=== PATIENT | female | born 1965 | race Caucasian/White ===

== ENCOUNTER → 2021-06-13 | Outpatient (CLI) | payer OTHER ==
--- NOTE | 2021-06-13 14:51 | KCIC ---
EXAM: DUAL ENERGY X-RAY ABSORPTIOMETRY (DEXA). HISTORY: Postmenopausal screening. FINDINGS: The lowest measured T-score is -1.0 in the left hip, based on a bone mineral density of 0.8 25 g/cm^2. Refer to the worksheets for full detail. No comparison examinations are available. IMPRESSION: 1. Low bone mass. Bone mineral density yields a T-score between -1.0 and -2.5. Fracture risk is incre ased. 2. FRAX report: Not calculated. METHODOLOGY: Dual energy x-ray absorptiometry was performed to measure bone mineral density. The foll owing analysis is based on the 2019 Official Positions of the International Society for Clinical Dens itometry: Measurements of the hips and the average of L1-L4 are preferred. When the spine and/or hip cannot be feasibly measured or interpreted, or in the setting of hyperparathyroidism, distal radial bone minera l density may be measured. The lumbar spine T-score is based on the average bone mineral density of L1-L4. In the setting of art ifact or anatomic abnormality, some lumbar levels may be excluded, and the remaining levels used for calculation. A single lumbar level is not used for diagnosis, and if only a single level is available for assessment, another anatomic site will be used to assign a diagnosis. The hip T-score is based on the bone mineral density measurement of the femoral neck or total proxima l femur of either side, whichever is lowest. Bilateral mean values are not used for diagnosis. The forearm T-score is derived from 33% of the distal radius of the nondominant forearm. Electronically signed by: Yuki Man MD (06/13/2021 2:49 PM) [id number]
--- NOTE | 2021-06-13 17:48 | KCIC ---
EXAM: MRI LEFT LOWER EXTREMITY W/O 06/13/2021 2:20 PM CLINICAL INDICATION: Left thigh/femur pain. Chronic pain and distal anterior thigh above the knee. C hronic hip pain and tightness COMPARISON: None TECHNIQUE: Multiplanar multisequence MR images of the right femur without contrast. FINDINGS: No acute fracture or osseous lesion. Marrow signal is normal. Cartilage at the hip is lena sly maintained. [id number] is not optimized to evaluate for labral tear. There is mild gluteus med ius and minimus tendinopathy and peritrochanteric edema. Rectus femoris, iliopsoas, adductor, and ham strings tendons are intact. [id number] is not optimized to evaluate the internal structures of the knee. Muscles are normal in signal and bulk. No joint effusion at the hip or knee. Visualized portio n of the pelvis is unremarkable. IMPRESSION: 1. No acute osseous abnormality. 2. Mild gluteus medius and minimus tendinopathy and peritrochanteric edema. Electronically signed by: Sonali Liang MD (06/13/2021 5:46 PM) [id number]
== END ==
LOC: KCIC DEXA 14:02
PROVIDERS: ATTEND Family Medicine
DX: M85.88 Other specified disorders of bone density and structure, other site (principal); M76.02 Gluteal tendinitis, left hip; Z78.0 Asymptomatic menopausal state
CPT/HCPCS: 73718; 77080